=== PATIENT | female | born 1975 | race Caucasian/White ===

== ENCOUNTER 2016-10-14 17:43 | Emergency (ER) | payer MEDICAID, MEDICARE ==
[~2016-10-14] VITALS: Ht 162.6 cm; Wt 77.3 kg
[2016-10-14 17:46] VITALS: BP 141/83; PULSE 88; RESP 20; O2SAT 99
--- NOTE | 2016-10-14 18:31 | ED.REPORT ---
HPI-Headache Date of Service Oct 14, 2016 ED Provider: Roberto Jimenez MD Patient is a 41 year old female with a history of rheumatoid arthritis, fibromyalgia, and migraines who presents to the ED vis EMS with a severe headache after she ran out of her methadone 2 days ago. The patient states that she is unable to sleep, eat, or drink due to her pain. The patient is on methadone and Percocet for her chronic pain, prescribed by Dr. Nielsen. The patient states that she "does not know what happened to her medications", but she last took a dose of methadone last night. Patient has only ever missed her medications when they were stolen previously. She states the pain is worse than her typical migraine. Patient admits to increased stress in her life, but denies any recent trauma. She admits to associated nausea and vomiting, which she has been treating with Ward. Patient admits to worsening of her diarrhea, but that she has IBS at her baseline. Patient denies fevers, diaphoresis Nursing Notes Stated Complaint: HEADACHE Chief Complaint: Headache Nursing Notes Reviewed: Yes ([employer] not reconciled) Allergies: Coded Allergies: azithromycin (Verified Allergy, Mild, 10/14/16) meperidine (Verified Allergy, Mild, 10/14/16) Scheduled PRN Promethazine (Promethazine) 25 Mg Tablet 25 MG PO Q4H PRN PRN migraine General Time Seen by MD: 18:27 Chief Complaint Headache Hx Obtained From: Patient Arrived By: Walk-in Sudden in Onset?: No Onset Occurred: 2 days ago Symptom Duration: Since onset Location: : Generalized Quality: Painful Severity: Current: Severe Severity: Maximum: Severe Recent Healthcare: No recent doctor visit, No recent hospitalization Similar Sx Previous: No Past Medical History Past Medical History fibromyalgia rheumatoid arthritis IBS anxiety Reports: GERD Reports: Depression, Migraines Past Surgical History none reported Smoking History Unknown if Ever Smoker Social History Other Social History: Local resident Ambulatory Status Independent Review of Systems Constitutional: Denies: Chills, Fever GI: Reports: Diarrhea, Nausea, Vomiting Skin: Denies Diaphoresis Neurologic: Reports: Headache, Denies: Change LOC Complete sys rev & neg: except as marked. Physical Exam Initial Vital Signs Vital Signs (First) Date Time Temp Pulse Resp B/P Pulse Ox O2 Delivery O2 Flow Rate FiO2 10/14/16 17:46 37.3 88 20 141/83 99 Room Air Initial VS: Reviewed, Vital signs normal ENT: Mucous membranes moist, Conjunctiva normal, No scleral icterus Respiratory: Breath sounds normal, Clear to auscultation, No respiratory distress Abdomen / GI: Soft, Non-tender Extremities: Vascular intact, Neuro intact Skin: Warm, Dry (no diaphoresis), No cyanosis Psychiatric: Mood/affect normal, Behavior normal, Normal thought content General/Constitutional: Awake, Alert, Cooperative Behavior: Positive: Anxious, Tearful concern for a component of withdrawal Head / Eyes: Atraumatic, Normocephalic, PERRL, EOMI, Temporal arteries NL ( nontender) Neck: Supple, No meningismus Neurologic: Oriented X3, Speech NL, No motor deficits, No sensory deficits, CN II - XII intact Cardiovascular: Heart rate NL, Regular rhythm, Heart sounds NL Heart Rate / Rhythm: Negative: Tachycardia Re-Eval/Medical Decision Med Decision/Clinical Course This is a 41-year-old female presents with chief complaint of a migraine, and a secondary complaint that she is out of her pain medications. Patient's on a pain contract, she is on methadone 10 mg 3 times a day plus oxycodone for chronic pain. G is a vague, unclear history of how she is short couple of days. She has been out to 3 days, and reports being under stress and has had a migraine. Pulse ox nausea and vomiting. She denies any trauma, denies fevers numbness weakness paresthesias or acute neurologic deficits, which has a long history of headaches. She is tearful, anxious-she is not diaphoretic has no piloerection, and is not in severe withdrawal, but I do suspect a component withdrawals contributing to her symptoms. She has no focal deficits, she has no red flags to indicate a need for neuro imaging or LP. She received IM Phenergan and Benadryl. Especially indicated provide a single dose of methadone here a single dose of oxycodone to address the withdrawal, and allow her enough time to get tomorrow and can talk to her PCP and sort out medications. She continued to complain of ongoing symptoms, and received Phenergan and Benadryl IM and ultimately was improved. Pain free, but explained do not feel that additional opiates are appropriate, nor is it appropriate for her to be discharged with any controlled substances. Patient's understanding of this. She is actually feeling much better at time of discharge. Source of Hx: Old records Re-Evaluation/Progress #1: Time of Eval: 21:09 Re-Evaluation/Progress Note: Rechecked the patient. She states that her pain is still persistent and she will need additional pain medication. Patient states that she has not had this severe of a migraine in many years. Re-Evaluation/Progress #2: Time of Eval: 22:09 )( Patient Status: Condition improved Re-Evaluation/Progress Note: Patient understands and agrees with the plan to be discharged home. Discharge instructions and follow-up discussed. All questions were addressed. Return to the ED warnings given. Differential Diagnosis: Positive: Headache, migraine, Negative: Carbon monoxide toxicity, Carotid artery dissection, Cerebrovascular accident, Dental infection, Fever-induced, Medication reaction, Meningitis, Preeclampsia, Sinusitis, Temporal arteritis Counseled Regarding: Diagnosis, Need for follow-up, When/why to return to ED Discharge & Departure Impression: Primary Impression: Migraine Migraine type: unspecified Status migrainosus presence: without status migrainosus Intractability: not intractable Qualified Code: G43.909 - Migraine, unspecified, not intractable, without status migrainosus Additional Impression: Opiate withdrawal Disposition: Home Discharge Condition All VS Reviewed: Yes Condition: Stable Additional Instructions: 1. You will need to follow up with your prescriber given you are out of your methadone and oxycodone several days early. We can not provide refills of these medications. 2. I did provide you with a dose of methadone as well as a dose of your oxycodone here to help with withdrawal symptoms and so that you can call your doctor's office tomorrow. However, I can not provide refills or controlled substances for discharge. 3. Continue ibuprofen 400-800mg three times a day for the migraine. 4. Continue promethazine 25mg up to every 4 hours as needed for migraine or nausea. Referrals: Pavel Nielsen DO (PCP) [employer] Attestation Portions of this note were transcribed by Danielle Perez. I, Dr. Jimenez personally performed the history, physical exam and medical decision-making; I reviewed and confirmed the accuracy of the information in the transcribed note. Signed by: Eveline Castrejon, 10/14/2016 [id number] copies to: Pavel Nielsen Matthew F MD Oct 14, 2016 18:31 Danielle Perez Oct 14, 2016 18:40
[2016-10-14] MEDS ORDERED: Promethazine 25 mg/mL Inj IM ONE (18:55)
[2016-10-14] MEDS ORDERED: HYDROmorphone 1 mg/mL Inj IM ONE (21:10)
[2016-10-14 21:39] VITALS: BP 110/73; PULSE 82; RESP 20; O2SAT 99
[2016-10-14] MEDS ORDERED: PROM25TA14 PO (21:59)
[2016-10-14 22:57] VITALS: BP 92/41; PULSE 82; RESP 20; O2SAT 99
== END 2016-10-14 22:50 | disposition home or self-care (01) ==
LOC: SED 17:43
DX: G43.909 Migraine, unspecified, not intractable, without status migrainosus (principal); F11.23 Opioid dependence with withdrawal; Z87.39 Personal history of other diseases of the musculoskeletal system and connective tissue; Z79.891 Long term (current) use of opiate analgesic; Z88.1 Allergy status to other antibiotic agents
CPT/HCPCS: 96372; 99284; J1170; J1200

== ENCOUNTER 2017-01-01 19:45 | Emergency (ER) | payer MEDICAID, MEDICARE ==
[~2017-01-01 19:45] MED LIST: PROM25TA14 PO
[2017-01-01 19:58] VITALS: BP 138/82; PULSE 82; RESP 18; O2SAT 97
--- NOTE | 2017-01-01 20:31 | ED.REPORT ---
HPI-Trauma Minor / Fall Date of Service Jan 01, 2017 ED Provider: Doc,Ed MD History of Present Illness: fell today. right foot caught the gas hose and landed on left side. around 5 pm. Pavel Nielsen is primary care.on pain contract for fibro and etc. Has pain medications left but they are not working at present. Patient with social stressors, is leaving her apartment and will be homeless after Tuesday. Nursing Notes Stated Complaint: GLF/PAINFUL RIBS L SIDE Chief Complaint: Multiple Trauma/Fall Nursing Notes Reviewed: Yes Allergies: Coded Allergies: azithromycin (Verified Allergy, Mild, 10/14/16) meperidine (Verified Allergy, Mild, 10/14/16) Scheduled PRN Promethazine (Promethazine) 25 Mg Tablet 25 MG PO Q4H PRN PRN migraine General Time Seen by MD: 20:30 Chief Complaint Fall Hx Obtained From: Patient Onset Occurred: 1 - 4 hours ago Symptom Duration: Since onset Past Medical History Past Medical History Notes: Chronic pain meds Past Medical History fibromyalgia rheumatoid arthritis IBS anxiety Reports: GERD Reports: Depression, Migraines Past Surgical History none reported Smoking History Current Every Day Smoker (1/2 pack a day for 22 years), Unknown if Ever Smoker Social History Alcohol Use: Denies alcohol use Drug Use: THC Other Social History: Local resident Occupation will be homeless on Tuesday, no work or school 01/01/2017 Ambulatory Status Independent Review of Systems Basic Review of Systems Cardiovascular: No chest pain, No dyspnea on exertion, No orthopnea, No parox noct dyspnea, No palpitations Hematologic: No bleeding, No bruising Psychiatric: Normal thought content Physical Exam Initial Vital Signs Vital Signs (First) Date Time Temp Pulse Resp B/P Pulse Ox O2 Delivery O2 Flow Rate FiO2 01/01/17 19:58 36.7 82 18 138/82 97 Room Air Interpretation & Diagnostics X-Ray Interpretation Xray Interpretation: wet read is negative by me. Re-Eval/Medical Decision Med Decision/Clinical Course 41 year old female presents for evualation after ground level fall landing on left side. Exam is reassuring. X-ray is negative for fracture. Patinet on chronic pain meds 240 percocet and methadon 10 mg tid by Pavel Nielsen. Discussed with no fracture, muscle pain is treated best with ice, antiinflammatories. She agrees. Does not feel additional pain medication should be provided. Patient with many social stressors and is losing her apartment , having to turn her keys in on Tuesday. She has attempted [place] and other resources to no avail. No sign of fracture, hematoma or SVC compression syndrome Discharge & Departure Impression: Primary Impression: Fall Encounter type: initial encounter Qualified Code: W19.XXXA - Unspecified fall, initial encounter Additional Impression: Contusion Encounter type: initial encounter Laterality: left Disposition: Home Patient Instructions: Contusions in Adults (ED), Fall Prevention for Older Adults (GEN) Additional Instructions: The x-ray does not show any sign of fracture. The exam is reassuring. You have been provided a toradol injection in the ER. We can also do lidocaine to the area of greatest discomfort. I spoke with your DrCornelius and advised that for muscle pain, antiinflammatories are best. She agrees that no additional opiates need to be provided from the ER. If the methadone and the percocet are not as effective, please discuss different options with her. Please continue to work with your resources to find housing. I am sorry this happened. Referrals: Pavel Nielsen DO (PCP) EDSupervising Provider for APC: Roberto Jimenez MD copies to: Pavel Nielsen Sue ARNP Jan 01, 2017 20:31
[2017-01-01] MEDS ORDERED: Ketorolac 30 mg/mL 2 mL Inj IM ONE (20:40)
[2017-01-01] MEDS ORDERED: Lidocaine 2% 5 mL Urojet Topical Jelly Syringe MUC_MEMBRM ONE (21:00)
[2017-01-01] MEDS ORDERED: Lidocaine 2% 5 mL Topical Jelly MUC_MEMBRM ONE (21:10)
[2017-01-01 21:15] VITALS: BP 127/79; PULSE 80; O2SAT 100
--- NOTE | 2017-01-01 21:37 | DRSVH ---
PROCEDURE: X-RAY CHEST, TWO VIEWS ([id number]) INDICATIONS: fall with pain TECHNIQUE: 2 views of the chest were acquired. COMPARISON: [facility], CR, CHEST 2 VIEW, 11/21/2014, 11:37. [facility], CR, XR CH EST 2VW, 08/20/2016, 16:20. FINDINGS: Surgical changes and devices: None. Lungs and pleura: No pleural effusions or pneumothorax. Lungs are clear. Mediastinum: Mediastinal contours are normal. Heart size is normal. Bones and chest wall: No suspicious bony abnormalities. No displaced fractures. Soft tissues appea r unremarkable. IMPRESSION: 1. No definite acute traumatic abnormality. Dictated by: Kayden Perez M.D. on 01/01/2017 at 21:34 Approved by: Kayden Perez M.D. on 01/01/2017 at 21:35
== END 2017-01-01 21:16 | disposition home or self-care (01) ==
LOC: SED 19:45
DX: S20.20XA Contusion of thorax, unspecified, initial encounter (principal); W01.0XXA Fall on same level from slipping, tripping and stumbling without subsequent striking against object, initial encounter; Y93.01 Activity, walking, marching and hiking; Y99.8 Other external cause status; Y92.524 Gas station as the place of occurrence of the external cause; E11.9 Type 2 diabetes mellitus without complications; F17.210 Nicotine dependence, cigarettes, uncomplicated; I10 Essential (primary) hypertension; M79.7 Fibromyalgia
CPT/HCPCS: 71020; 96372; 99284; J1885

== ENCOUNTER 2017-01-24 21:27 | Emergency (ER) | payer MEDICAID, MEDICARE ==
[~2017-01-24] VITALS: Ht 165.1 cm; Wt 80.9 kg
[2017-01-24 21:39] VITALS: BP 110/65; PULSE 103; RESP 18; O2SAT 97
--- NOTE | 2017-01-24 22:13 | ED.REPORT ---
HPI-General Illness Date of Service Jan 24, 2017 ED Provider: Dr. Vinicius Kennedy M.D. A 41 year old female with a medical history including fibromyalgia, rheumatoid arthritis, IBS, migraines, and GERD presents to the ED requesting assistance with pain medication detox. The patient recently consulted with her PCP and developed a plan to stop taking most of her medications, including methadone and Percocet. She has been taking pain medication regularly since 2006 and has been on methadone for "several years," but now wishes to treat her pain with diet and exercise instead. The patient requests placement in a crisis center with eventual enrollment in an inpatient program. She reports chronic diarrhea as well as chronic intermittent nausea and vomiting but denies other symptoms currently. Nursing Notes Stated Complaint: OPIATE WITHDRAWL Chief Complaint: Substance Abuse Nursing Notes Reviewed: Yes Allergies: Coded Allergies: morphine (Verified Allergy, Severe, SI, 01/24/17) azithromycin (Verified Allergy, Mild, 10/14/16) meperidine (Verified Allergy, Mild, 10/14/16) Scheduled Clonidine (Clonidine) 0.2 Mg Tablet 0.2 MG PO BID Scheduled PRN Chlordiazepoxide (Chlordiazepoxide) 25 Mg Capsule 25 MG PO TID PRN PRN anxiety Loperamide (Loperamide) 2 Mg Tablet 2 MG PO Q4H PRN PRN For Diarrhea or Loose Stool Ondansetron ODT (Ondansetron ODT) 8 Mg Tab.rapdis 8 MG PO QID PRN PRN For Nausea Promethazine (Promethazine) 25 Mg Tablet 25 MG PO Q4H PRN PRN migraine General Time Seen by MD: 22:13 Chief Complaint Other (Pain Medication Detox) Hx Obtained From: Patient Arrived By: Walk-in Sudden in Onset?: Yes Symptom Duration: Since onset Severity: Current: No pain currently Severity: Maximum: No pain Associated with: Reports: Nausea, Vomiting Pertinent Negative: Relieved by nothing Context Related History: Reports Depression, Reports Drug dependence, Reports GERD Recent Healthcare: No recent doctor visit Past Medical History Past Medical History Notes: Chronic pain medication - as of 01/24/17 Past Medical History Fibromyalgia Rheumatoid arthritis IBS Anxiety GERD Depression Migraines Osteoarthritis Past Surgical History Cholecystectomy Hysterectomy Multiple GI procedures Deviated Septum Transvaginal mesh placement Smoking History Current Every Day Smoker Social History Alcohol Use: Denies alcohol use Drug Use: THC Other Social History: Good social support, Local resident Occupation will be homeless on Tuesday, no work or school 01/01/2017 Ambulatory Status Independent Review of Systems + Pain medication detox assistance request Full Review of Systems Constitutional: Denies: Fever Respiratory: Denies: Non-productive cough, Shortness of breath GI: Reports: Diarrhea (Chronic), Nausea (Chronic, intermittent), Vomiting ( Chronic, intermittent ) Complete sys rev & neg: except as marked. Physical Exam Vital Signs Vital Signs Date Time Temp Pulse Resp B/P Pulse Ox O2 Delivery O2 Flow Rate FiO2 01/24/17 23:05 37.5 98 131/64 93 Room Air 01/24/17 21:39 36.6 103 18 110/65 97 Room Air Initial VS: Reviewed Head / Eyes: Atraumatic, Normocephalic Respiratory: Breath sounds normal, Clear to auscultation, No respiratory distress Cardiovascular: Regular rate & rhythm, Heart sounds normal Neurologic: Alert, Oriented, Nonfocal General/Constitutional: Awake, Alert, Well hydrated No signs of withdrawal ENT: Airway patent, Mucous membranes moist Dental / Gums: Positive: Dentition poor Abdomen: Soft, Non-tender, BS normoactive Skin: Warm, Dry No goosebumps Psychiatric: Affect NL, Cognitive function NL, Judgment/insight NL Abnormal Mood/Affect: Positive: Labile (Easily moved to tears) Re-Eval/Medical Decision Med Decision/Clinical Course 41-year-old female with chronic opiate use by prescription, presents requesting detox. She is chronically on methadone 30 mg daily, along with Percocet up to eight tablets daily, along with Soma which she has not used recently. Crisis respite here does not do methadone detox due to the length of time required. Only local resources [facility] in [place]. They were contacted and are willing to put her through the process if she will call daily per their protocol and go through screening. She objects that she has no ride but is advised that she will need to make her own arrangements for that. She cannot be hospitalized due to lack of transportation. She is discharged now with standard meds including clonidine, Librium, ondansetron, and loperamide. Contact info for [facility] given. Source of Hx: Old records Time of Eval: 22:34 Patient Status: Condition improved Re-Evaluation/Progress Note: Patient rechecked. Discussed with patient crisis center consults, diagnosis, and plan for discharge. Follow-up and return to the ER instructions given. Patient agrees with plan for care and all questions were addressed. Consultation #1: Call Returned at: 22:25 Tree Farmer: Agrees with eval, Agrees with plan, Referred to other consult ( [facility]) Note: Consulted with Crisis Center. They do not take patients in methadone withdrawal. Consultation #2: Call Returned at: 22:30 Tree [employer]: Agrees with eval, Agrees with plan Note: Consulted with [facility]. No beds available currently. Patient can call tomorrow. Counseled Regarding: Diagnosis, Need for follow-up, When/why to return to ED Discharge & Departure Shift Change Sign-Out Response to Therapy: Improved Primary Impression: Opiate dependence, continuous Additional Impressions: Chronic pain Chronic pain type: other chronic pain Qualified Code: G89.29 - Other chronic pain Opiate withdrawal Disposition: Home Discharge Condition All VS Reviewed: Yes Condition: Improved Additional Instructions: The only Center that deals with methadone withdrawal is [facility]. Call them daily at [phone]. They accept calls promptly at 8 AM, 1 PM, and 7 PM. They will do a screening with you, and offer a bed when it is available. They will need to clear your insurance information to determine that you are eligible. In the meantime, you may take clonidine one tablet twice daily. You may take Librium one tablet up to three times daily as needed for anxiety. You may take loperamide every two hours as needed for diarrhea. You may take Zofran four times daily if needed for nausea. These meds will continue in your detox program if you get a bed. They can arrange long-term treatment as a transition from the short-term treatment at [facility]. The only other local option is [facility]. Referrals: Pavel Nielsen DO (PCP) [employer] Attestation Portions of this note were transcribed by Patrizia Atkinson. I, Dr. Kennedy, personally performed the history, physical exam, and medical decision-making; I reviewed and confirmed the accuracy of the information in the transcribed note. Signed by: Eveline Parker, 01/25/2017, 00:55 copies to: Pavel Nielsen Christopher W MD Jan 24, 2017 22:13 PATRIZIA ATKINSON Jan 24, 2017 22:21
[2017-01-24] MEDS ORDERED: Ondansetron 8 mg ODT Tablet PO ONE (22:40)
[2017-01-24] MEDS ORDERED: chlordiazePOXIDE 25 mg Capsule PO ONE (22:40)
[2017-01-24] MEDS ORDERED: LOPE2TAB32 PO (22:46)
[2017-01-24] MEDS ORDERED: ONDA8TAB10 PO (22:46)
[2017-01-24] MEDS ORDERED: CLON0.2T PO (22:46)
[2017-01-24] MEDS ORDERED: CHLO25CA10 PO (22:46)
[2017-01-24] MEDS ORDERED: _Ondansetron ODT 4 mg Tablet PO PRN (22:50)
[2017-01-24 23:05] VITALS: BP 131/64; PULSE 98; O2SAT 93
== END 2017-01-24 23:07 | disposition home or self-care (01) ==
LOC: SED 21:27
DX: F11.23 Opioid dependence with withdrawal (principal); G89.29 Other chronic pain; K21.9 Gastro-esophageal reflux disease without esophagitis; M79.7 Fibromyalgia; M06.9 Rheumatoid arthritis, unspecified; K58.9 Irritable bowel syndrome, unspecified; G43.909 Migraine, unspecified, not intractable, without status migrainosus; M19.90 Unspecified osteoarthritis, unspecified site; F32.9 Major depressive disorder, single episode, unspecified; F41.9 Anxiety disorder, unspecified; F17.200 Nicotine dependence, unspecified, uncomplicated; Z88.5 Allergy status to narcotic agent; Z88.8 Allergy status to other drugs, medicaments and biological substances

== ENCOUNTER 2017-03-21 08:11 | Emergency (ER) | payer MEDICAID, MEDICARE ==
[~2017-03-21] VITALS: Ht 163.8 cm; Wt 77.3 kg
[~2017-03-21 08:11] MED LIST changes: +CHLO25CA10 PO; +CLON0.2T PO; +LOPE2TAB32 PO; +ONDA8TAB10 PO
[2017-03-21 08:13] VITALS: BP 146/88; PULSE 96; RESP 15; O2SAT 100
[2017-03-21 09:08] LABS: BASOPHILS % (AUTO) 0.4 % (0-3); EOSINOPHILS % (AUTO) 0.8 % (0-5); MONOCYTES % (AUTO) 5.1 % (4-12); Mean Corpuscular Hemoglobin 29.4 pg (27.0-35.0); Mean Corpuscular Volume 88.3 fL (81-100); NEUTROPHILS % (AUTO) 72.2 % (40-74)
--- NOTE | 2017-03-21 09:15 | ED.REPORT ---
HPI-Abd Pain F 40 and Over Date of Service Mar 21, 2017 ED Provider: Kelly Woodward Patient is a 41 y/o female w/ a hx of DM, chronic stomach problems, and chronic pain presenting to the ED c/o vomiting onset 2 days ago. Associated symptoms include nausea. She is unable to keep foods and liquids down without vomiting. She denies fever, cough, or any other symptoms at this time. Patient has a pain agreement for 10 mg of methadone 4x a day. Her prescription is to be filled tomorrow morning and she is currently out of pills. She states that she has been repeatedly trying to take her medication but that she throws it up, which is why she is currently out. She was last able to keep a dose down 2 days ago. Patient takes Metformin daily. Nursing Notes Stated Complaint: NAUSEA,VOMITING Chief Complaint: Female Abdominal Pain Nursing Notes Reviewed: Yes Allergies: Coded Allergies: morphine (Verified Allergy, Severe, SI, 01/24/17) azithromycin (Verified Allergy, Mild, 10/14/16) meperidine (Verified Allergy, Mild, 10/14/16) Scheduled Clonidine (Clonidine) 0.2 Mg Tablet 0.2 MG PO BID Scheduled PRN Chlordiazepoxide (Chlordiazepoxide) 25 Mg Capsule 25 MG PO TID PRN PRN anxiety Loperamide (Loperamide) 2 Mg Tablet 2 MG PO Q4H PRN PRN For Diarrhea or Loose Stool Ondansetron (Zofran) 4 Mg Tablet 4 MG PO Q4H PRN PRN For Nausea Ondansetron ODT (Ondansetron ODT) 8 Mg Tab.rapdis 8 MG PO QID PRN PRN For Nausea Promethazine (Promethazine) 25 Mg Tablet 25 MG PO Q4H PRN PRN migraine General Time Seen by MD: 09:12 Chief Complaint Vomiting mild Hx Obtained From: Patient Arrived By: Walk-in Sudden in Onset?: Yes Onset Occurred: 2 days ago Symptom Duration: Since onset Similar Sx Previous: Yes Risk Factors )( AAA Risk Stratification SmokingNo Hypertension Risk factors reviewed Past Medical History Past Medical History Notes: Chronic pain medication - as of 01/24/17 Past Medical History Fibromyalgia Rheumatoid arthritis IBS Anxiety GERD Depression Migraines Osteoarthritis Partial stomach paralysis Reports: Asthma Past Surgical History Cholecystectomy Hysterectomy Multiple GI procedures Deviated Septum Transvaginal mesh placement 10-11 laparoscopies Smoking History Current Every Day Smoker Social History Alcohol Use: Denies alcohol use Drug Use: THC (recently quit - 2 months ago) Other Social History: Good social support, Local resident Occupation will be homeless on Tuesday, no work or school 01/01/2017 Ambulatory Status Independent Review of Systems Constitutional: Denies: Fever Respiratory: Denies: Non-productive cough GI: Reports: Nausea, Vomiting Complete sys rev & neg: except as marked. Physical Exam Vital Signs Vital Signs (First) Date Time Temp Pulse Resp B/P Pulse Ox O2 Delivery O2 Flow Rate FiO2 03/21/17 08:13 36.2 96 15 146/88 100 Room Air Initial VS: Reviewed Head / Eyes: Atraumatic, Normocephalic Neck: Supple Skin: Warm, Dry Neurologic: Alert, Oriented General/Constitutional: Awake, Alert, Well developed Respiratory / Chest: Atraumatic, Breath sounds NL, Breath sounds = bilat, No respiratory distress, No rales, No rhonchi, No wheezing Cardiovascular: Heart rate NL, Regular rhythm, Heart sounds NL, No gallop, No murmurs, No rubs No tachycardia Well perfused Abdomen: No guarding, No rebound Tenderness/Guarding/Rebound: Positive: Tender RUQ... (Mild), Tender epigastric Back: Atraumatic, Non-tender ENT: Atraumatic Mouth: Positive: Mucous membranes dry Interpretation & Diagnostics Lab Results Interpretation Result Diagram: 03/21/17 0832 03/21/17 0832 Test 03/21/17 08:32 03/21/17 10:30 White Blood Count 10.5th/mm3 (3.8-10.1) Red Blood Count 4.53mil/mm3 (3.90-5.20) Hemoglobin 13.3g/dL (12.0-15.6) Hematocrit 40.0% (35.0-46.0) Mean Corpuscular Volume 88.3fL (81-100) Mean Corpuscular Hemoglobin 29.4pg (27.0-35.0) Mean Corpuscular Hemoglobin Concent 33.3% (32.0-37.0) Red Cell Distribution Width 14.7% (12.3-15.4) Platelet Count asim/L (150-400) Neutrophils (%) (Auto) 72.2% (40-74) Lymphocytes (%) (Auto) 21.4% (14-46) Monocytes (%) (Auto) 5.1% (4-12) Eosinophils (%) (Auto) 0.8% (0-5) Basophils (%) (Auto) 0.4% (0-3) Sodium Level 144mEq/L (134-144) Potassium Level 3.6mEq/L (3.5-5.2) Chloride Level 105mEq/L (97-108) Carbon Dioxide Level 24mmol/L (18-29) Blood Urea Nitrogen 9mg/dL (6-20) Creatinine 0.51mg/dL (0.57-1.00) Estimat Glomerular Filtration Rate 192mL/min (>59) Glucose Level 147mg/dL (60-99) Calcium Level 10.4mg/dL (8.5-10.1) Magnesium Level 1.9mg/dL (1.6-2.6) Total Bilirubin 0.3mg/dL (0.0-1.2) Aspartate Amino Transf (AST/SGOT) 42U/L (0-50) Alanine Aminotransferase (ALT/SGPT) 71U/L (0-32) Alkaline Phosphatase 72U/L (25-150) Total Protein 8.0g/dL (6.4-8.4) Albumin 4.7g/dL (3.4-5.0) Lipase 29U/L (13-60) Hold José Top Tube Received (Received) Hold Urine Received (Received) Re-Eval/Medical Decision Re-Evaluation/Progress : Time of Eval: 11:20 Re-Evaluation/Progress Note: Rechecked patient. Patient feels less nauseated. She has worsened chronic back pain and still feels dehydrated. Discussed tentative plan for discharge. Patient understands and agrees with plan. All questions addressed at this time. Counseled Regarding: Diagnosis, Lab results, Need for follow-up, When/why to return to ED Discharge & Departure Primary Impression: Nausea and vomiting Vomiting type: unspecified Vomiting Intractability: non-intractable Qualified Code: R11.2 - Nausea with vomiting, unspecified Additional Impression: Chronic back pain Back pain location: back pain in unspecified location Back pain laterality: unspecified Qualified Code: M54.9 - Dorsalgia, unspecified Disposition: Home Discharge Condition All VS Reviewed: Yes Condition: Stable Additional Instructions: Thank you for entrusting us with your care. [facility] work. We did not find a dangerous cause for your symptoms at this time. There were no significant abnormalities in your lab results. Refill your pain medication tomorrow morning. [facility] as [facility]. Return to the Emergency Department if you experience fever, increasing abdominal pain, or any other new or worsening symptoms. Referrals: Pavel Nielsen DO (PCP) Makaylaibe Attestation Portions of this note were transcribed by Caitlin Merino & Trung French. I, Dr. Woodward personally performed the history, physical exam and medical decision-making; I reviewed and confirmed the accuracy of the information in the transcribed note. Signed by: Caitlin French.Eevline, 03/12/2017 and 1411 copies to: Pavel Nielsen Shawna L MD Mar 21, 2017 09:15 Caitlin Merino Mar 21, 2017 09:25 TRUNG FRENCH Mar 21, 2017 10:26
[2017-03-21 09:18] LABS: Magnesium 1.9 mg/dL (1.6-2.6)
[2017-03-21] MEDS ORDERED: 0.9% Sodium Chloride 1,000 ML IV ONE ×2 (09:24→11:55)
[2017-03-21] MEDS ORDERED: Ondansetron 2 mg/mL 2 mL Inj IVPUSH ONE (09:25)
[2017-03-21] MEDS ORDERED: HYDROmorphone 1 mg/mL Inj IVPUSH ONE (09:25)
[2017-03-21] MEDS ORDERED: Pantoprazole 4 mg/mL 10 mL Inj IVPUSH ONE (09:25)
[2017-03-21] MEDS ORDERED: MetoCLOpramide 5 mg/mL 2 mL Inj IVPUSH ONE (11:55)
[2017-03-21] MEDS ORDERED: ONDA4TAB6 PO (12:33)
[2017-03-21 12:43] VITALS: BP 134/54; PULSE 91; RESP 16; O2SAT 100
== END 2017-03-21 12:44 | disposition home or self-care (01) ==
LOC: SED 08:11
DX: R11.2 Nausea with vomiting, unspecified (principal); M54.9 Dorsalgia, unspecified; G89.4 Chronic pain syndrome; E11.9 Type 2 diabetes mellitus without complications; K21.9 Gastro-esophageal reflux disease without esophagitis; F41.9 Anxiety disorder, unspecified; F32.9 Major depressive disorder, single episode, unspecified; J45.909 Unspecified asthma, uncomplicated; M79.7 Fibromyalgia; M06.00 Rheumatoid arthritis without rheumatoid factor, unspecified site; K58.9 Irritable bowel syndrome, unspecified; F17.200 Nicotine dependence, unspecified, uncomplicated; Z79.891 Long term (current) use of opiate analgesic; Z79.84 Long term (current) use of oral hypoglycemic drugs; Z88.5 Allergy status to narcotic agent; Z88.1 Allergy status to other antibiotic agents
CPT/HCPCS: 36415; 80053; 82948; 83690; 83735; 85025; 96361; 96374; 96375; 99285; J1170; J2405; J2765; J7030

== ENCOUNTER 2017-05-24 13:59 | Emergency (ER) | payer MEDICARE, MEDICAID ==
[~2017-05-24] VITALS: Ht 162.6 cm; Wt 77.3 kg
[~2017-05-24 13:59] MED LIST changes: +ONDA4TAB6 PO
[2017-05-24 14:08] VITALS: BP 122/81; PULSE 71; RESP 16; O2SAT 100
--- NOTE | 2017-05-24 16:25 | ED.REPORT ---
HPI-NVD Date of Service May 24, 2017 ED Provider: Doc,Ed MD History of Present Illness: migraine for 4 days usually imitrex helps but not today. Luna nielsen is primary care. zofran not helping. unable to keep methadone done. phenergan helps if zofran doesn't. does not want medications rectally. Nursing Notes Stated Complaint: HEADACHE/ NAUSEA Chief Complaint: General Complaint Nursing Notes Reviewed: Yes Allergies: Coded Allergies: morphine (Verified Allergy, Severe, SI, 01/24/17) azithromycin (Verified Allergy, Mild, 10/14/16) meperidine (Verified Allergy, Mild, 10/14/16) Scheduled Clonidine (Clonidine) 0.2 Mg Tablet 0.2 MG PO BID Scheduled PRN Chlordiazepoxide (Chlordiazepoxide) 25 Mg Capsule 25 MG PO TID PRN PRN anxiety Loperamide (Loperamide) 2 Mg Tablet 2 MG PO Q4H PRN PRN For Diarrhea or Loose Stool Ondansetron (Zofran) 4 Mg Tablet 4 MG PO Q4H PRN PRN For Nausea Ondansetron ODT (Ondansetron ODT) 8 Mg Tab.rapdis 8 MG PO QID PRN PRN For Nausea Promethazine (Promethazine) 25 Mg Tablet 25 MG PO Q4H PRN PRN migraine General Time Seen by MD: 16:24 Chief Complaint Nausea, Vomiting Hx Obtained From: Patient Onset Occurred: 4 days ago Past Medical History Past Medical History Notes: Chronic pain medication - as of 01/24/17. 05/24/2017 new provider for methadone is Graham Sebastian [id number] [place] [address] [address] [facility] [id number] as of 02/09/2017 Past Medical History Fibromyalgia Rheumatoid arthritis IBS Anxiety GERD Depression Migraines Osteoarthritis Partial stomach paralysis Reports: Asthma Past Surgical History Cholecystectomy Hysterectomy Multiple GI procedures Deviated Septum Transvaginal mesh placement 10-11 laparoscopies Smoking History Current Every Day Smoker (7 cig a day for 20 years) Social History Alcohol Use: Denies alcohol use Drug Use: THC Other Social History: Good social support, Local resident Occupation recently , no work or school 05/24/2017 Ambulatory Status Independent Review of Systems Basic Review of Systems Eyes: Vision NL, No discharge Hematologic: No bleeding, No bruising Psychiatric: Normal thought content Physical Exam Initial Vital Signs Vital Signs (First) Date Time Temp Pulse Resp B/P Pulse Ox O2 Delivery O2 Flow Rate FiO2 05/24/17 14:08 36.2 71 16 122/81 100 Room Air Initial VS: Reviewed, Vital signs normal Head / Eyes: Atraumatic, Normocephalic, PERRL ENT: Mucous membranes moist, Conjunctiva normal, No scleral icterus Neck: Supple, Non-tender, Full range of motion Respiratory: Breath sounds normal, Clear to auscultation, No respiratory distress Cardiovascular: Regular rate & rhythm, Heart sounds normal, Intact distal pulses Back: No CVA tenderness Lymphatic: No lymphadenopathy Extremities: Vascular intact, Neuro intact, No swelling, No tenderness Skin: Warm, Dry, No cyanosis Neurologic: Alert, Oriented, Nonfocal Psychiatric: Mood/affect normal, Behavior normal, Normal thought content General/Constitutional: Awake, Alert, No acute distress, Well appearing, Well developed, Well hydrated, Well nourished, Cooperative, Not toxic appearing patient appears well fopr 4 days of vomiting. No vomiting in the department . Was waiting for 3 hours before being seen. Abdomen: Atraumatic, Soft, Non-tender Respiratory / Chest: Atraumatic, Breath sounds NL, Breath sounds = bilat, No respiratory distress, No rales, No rhonchi, No wheezing, No retractions Cardiovascular: Heart rate NL, Regular rhythm, Heart sounds NL, No gallop Back: Atraumatic, Inspection NL, Full range of motion, Painless range of motion Interpretation & Diagnostics Lab Results Interpretation Result Diagram: 05/24/17 1633 05/24/17 1700 Test 05/24/17 16:33 05/24/17 17:00 White Blood Count 9.0th/mm3 (3.8-10.1) Red Blood Count 4.81mil/mm3 (3.90-5.20) Hemoglobin 14.0g/dL (12.0-15.6) Hematocrit 43.5% (35.0-46.0) Mean Corpuscular Volume 90.4fL (81-100) Mean Corpuscular Hemoglobin 29.1pg (27.0-35.0) Mean Corpuscular Hemoglobin Concent 32.2% (32.0-37.0) Red Cell Distribution Width 14.0% (12.3-15.4) Platelet Count 141bil/L (150-400) Neutrophils (%) (Auto) 72.2% (40-74) Lymphocytes (%) (Auto) 23.6% (14-46) Monocytes (%) (Auto) 3.4% (4-12) Eosinophils (%) (Auto) 0.4% (0-5) Basophils (%) (Auto) 0.2% (0-3) Sodium Level 137mEq/L (134-144) Potassium Level 3.8mEq/L (3.5-5.2) Chloride Level 97mEq/L (97-108) Carbon Dioxide Level 26mmol/L (18-29) Blood Urea Nitrogen 9mg/dL (6-20) Creatinine 0.41mg/dL (0.57-1.00) Estimat Glomerular Filtration Rate 247mL/min (>59) Glucose Level 114mg/dL (60-99) Calcium Level 9.8mg/dL (8.5-10.1) Total Bilirubin 0.3mg/dL (0.0-1.2) Aspartate Amino Transf (AST/SGOT) 18U/L (0-50) Alanine Aminotransferase (ALT/SGPT) 13U/L (0-32) Alkaline Phosphatase 74U/L (25-150) Total Protein 8.7g/dL (6.4-8.4) Albumin 4.8g/dL (3.4-5.0) Lab Results Interpretation: urine does not show any ketones. Urine is light yellow and clear Re-Eval/Medical Decision Med Decision/Clinical Course 41 year old female presents to the ER with a reported 4 day history of vomiting, unable to keep her methadone down. Patient states she also has a headache and she usually gets 6 mg of dilaulid if the imitrex does not work. Labs look good. No sign of dehydration. Encouraged patient to follow with primary care. Discharge & Departure Impression: Primary Impression: Headache Headache type: unspecified Additional Impression: Nausea and vomiting Vomiting type: unspecified Disposition: Home Patient Instructions: Acute Nausea and Vomiting (ED), General Headache (ED) Additional Instructions: Your labs are looking good. No sign of any abnormalities. The urine looks good. No sign of any ketones. Please use prochlorperazine 10 mg up to 3 times a day as needed for nausea. Please follow with your primary care as needed. Referrals: Pavel Nielsen DO (PCP) EDSupervising Provider for APC: Jani Ibrahim DO copies to: Pavel Nielsen Sue ARNP May 24, 2017 16:25
[2017-05-24] MEDS ORDERED: Dexamethasone Inj 10 MG in 0.9% Sodium Chloride-Pha MIX 50 ML IV ONE (16:35)
[2017-05-24] MEDS ORDERED: ProchlorPERazine 5 mg/mL 2 mL Inj IVPUSH ONE (16:35)
[2017-05-24] MEDS ORDERED: 0.9% Sodium Chloride 1,000 ML IV ONE (16:35)
[2017-05-24 17:10] LABS: BASOPHILS % (AUTO) 0.2 % (0-3); EOSINOPHILS % (AUTO) 0.4 % (0-5); MONOCYTES % (AUTO) 3.4 % (4-12); Mean Corpuscular Hemoglobin 29.1 pg (27.0-35.0); Mean Corpuscular Volume 90.4 fL (81-100); NEUTROPHILS % (AUTO) 72.2 % (40-74); Platelet Count 141 bil/L (150-400)
[2017-05-24 18:45] VITALS: BP 120/66; PULSE 84; O2SAT 85
== END 2017-05-24 18:48 | disposition home or self-care (01) ==
LOC: SED 13:59
DX: R51 Headache (principal); R11.2 Nausea with vomiting, unspecified; F41.9 Anxiety disorder, unspecified; K21.9 Gastro-esophageal reflux disease without esophagitis; F32.9 Major depressive disorder, single episode, unspecified; J45.909 Unspecified asthma, uncomplicated; F17.200 Nicotine dependence, unspecified, uncomplicated; Z88.5 Allergy status to narcotic agent; Z88.1 Allergy status to other antibiotic agents; Z88.8 Allergy status to other drugs, medicaments and biological substances
CPT/HCPCS: 80053; 81002; 85025; 96361; 96372; 96374; 96375; 99284; J0780; J1100; J1885; J3030; J7030